=== PATIENT | male | born 1950 | race Caucasian/White ===

== ENCOUNTER → 2018-10-29 | Day surgery (SDC) | payer MEDICARE ==
[2018-10-25 17:10] LABS: BASOPHILS # (AUTO) 0.1 (0.0-0.1); BASOPHILS % 0.7 % (0.0-1.0); EOSINOPHILS # (AUTO) 0.2 (0.0-0.4); EOSINOPHILS % 2.7 % (0.0-6.0); HEMATOCRIT 36.8 % (38.2-49.6); HEMOGLOBIN 12.4 g/dL (14.0-18.0); LYMPHOCYTES # (AUTO) 1.9 (1.0-3.2); MEAN CORPUSCULAR HEMOGLOBIN 29.5 pg (28-32); MEAN CORPUSCULAR HGB CONC 33.7 g/dL (31-35); MEAN CORPUSCULAR VOLUME 87.6 fL (81-99); MONOCYTES # (AUTO) 0.6 (0.2-0.8); MONOCYTES % 9.1 % (4.4-11.3); NEUTROPHILS % 58.9 % (38.7-80.0); PLATELET COUNT 183 x10e3/uL (140-360); RED CELL DISTRIBUTION WIDTH 13.3 % (11.7-14.4)
[~2018-10-29] MED LIST: ASPIR 8181 MG PO; CARVEDILOL3.125 MG PO; DEXTROSE 5% 250ML 250 ML IV ONE; GLIMEPIRIDE2 MG PO; LAMOTRIGINE100 MG PO; METFORMIN HCL1000 MG PO; MIDAZOLAM HCL 2 MG/2 ML VIAL ONE; PIOGLITAZONE HC45 MG PO; PROPOFOL IV EMULSION 10 MG/ML 50 ML VIAL ONE; ROPINIROLE HCL1 MG PO; SIMVASTATIN20 MG PO; SPIRONOLACTONE25 MG PO; STRATTERA100 MG PO; TIZANIDINE HCL4 MG PO; TRAZODONE HCL50 MG PO
--- OUTSIDE RECORDS SUMMARY | 2018-10-29 06:29 | XMS REPORT | Clinical Summary ---
Author Author [facility] Organization [facility] Address Unknown Phone Unavailable Care Team Providers Care Display Artist Name Role Phone PCP Unavailable Allergies No Known Allergies Medications Not on file Active Problems Not on file Encounters Care Team Description Date Type Specialty 06/13/2018 Emergency Emergency Medicine 06/13/2018 Travel after 10/28/2017 Social History Date Tobacco Use Types Packs/Day Years Used Never Assessed Sex Assigned at Date Recorded Not on file Industry Job Start Date Occupation Not on file Not on file Not on file Travel End Travel History Travel Start No recent travel history available. Last Filed Vital Signs Reading Time Taken Comments Vital Sign 125/74 06/13/2018 7:24 PM MASH TUB COOKER OPERATOR Blood Pressure 95 06/13/2018 7:24 PM MASH TUB COOKER OPERATOR Pulse 36.7 C (98 F) 06/13/2018 7:24 PM MASH TUB COOKER OPERATOR Temperature 16 06/13/2018 7:24 PM MASH TUB COOKER OPERATOR Respiratory Rate 100% 06/13/2018 7:24 PM MASH TUB COOKER OPERATOR Oxygen Saturation - - Inhaled Oxygen Concentration - - Weight - - Height - - Body Mass Index Plan of Treatment Health Maintenance Due Date Last Done Comments Colorectal Cancer Scrn 09/25/2001 Annual (FIT/FOBT) Age 50 to 75 IMM Pneumococcal Age 65 09/25/2016 and Up IMM Influenza Seasonal 02/04/2019Feb to July (>/=19 yrs) Results Not on fileafter 10/28/2017 Insurance Type Payer Benefit Subscriber ID Effective Phone Address Plan / Dates Group [facility] SELECTCARE xxxxxxxxx 2018-P [phone] [id number] [place] [address]
--- OUTSIDE RECORDS SUMMARY | 2018-10-29 06:29 | XMS REPORT | Clinical Summary ---
Author Author [facility] Address Unknown Phone Unavailable Care Team Providers Care Population Health Manager Name Role Phone Sofi Wasserman MD PCP Unavailable Allergies No Known Allergies Medications End Date Status Medication Sig Dispensed Refills Start Date Active lamoTRIgine (LaMICtal) Take 100 mg 0 100 MG tablet by mouth 2 (two) times a day. Active traZODone (DESYREL) 150 Take 150 mg 0 MG tablet by mouth 3 (three) times a day. Active pioglitazone (ACTOS) 15 Take 15 mg by 0 MG tablet mouth nightly. Active lisinopril Take 10 mg by 0 (PRINIVIL,ZESTRIL) 10 mg mouth daily. tablet Active atomoxetine (STRATTERA) Take 100 mg 0 40 MG capsule by mouth daily. Active montelukast (SINGULAIR) Take 10 mg by 0 10 mg tablet mouth daily. Active glimepiride (AMARYL) 4 MG Take 4 mg by 0 tablet mouth daily before breakfast. Active tiZANidine (ZANAFLEX) 4 Take 4 mg by 0 MG tablet mouth every 8 (eight) hours as needed for muscle spasms. Active rOPINIRole (REQUIP) 2 MG Take 2 mg by 0 tablet mouth 2 (two) times a day. Active aspirin (ECOTRIN) 81 MG Take 81 mg by 0 enteric coated tablet mouth daily. 06/12/2019 Active spironolactone Take 1 tablet 30 tablet 11 (ALDACTONE) 25 MG tablet (25 mg total) 9 by mouth daily. 06/12/2019 Active carvedilol (COREG) 6.25 Take 1 tablet 60 tablet 11 MG tablet (6.25 mg 9 total) by mouth 2 (two) times a day with meals. 06/12/2019 Active simvastatin (ZOCOR) 20 MG Take 1 tablet 30 tablet 11 tablet (20 mg total) 9 by mouth nightly. 06/12/2018 Discontinued metFORMIN (GLUCOPHAGE) Take 1,000 mg 0 1,000 mg tablet by mouth 2 (two) times a day with meals. Active Problems Problem Noted Date Chest pain, rule out acute myocardial infarction 06/11/2018 Encounters Care Team Description Date Type Specialty Esteban Hall MD Cv left heart cath [64850 (CPT)] 06/12/2018 Surgery Procedural Cardiology Reymundo Chavez MD Berberian, Esteban N., MD Chest pain, rule out acute myocardial infarction (Primary Dx) 06/10/2018 Emergency General Internal Medicine - 06/12/2018 after 10/28/2017 Immunizations Name Dates Previously Given Next Due FLUCELVAX QUAD PF (0.5mL 06/11/2018 syringe) Pneumococcal Conjugate 06/11/2018 13-Valent Social History Date Tobacco Use Types Packs/Day Years Used Former Smoker Smokeless Tobacco: Former User Alcohol Use Drinks/Week oz/Week Comments No Alcohol Habits Answer Date Recorded How often do you have a drink containing alcohol? Never 06/11/2018 How many drinks containing alcohol do you have on Not asked a typical day when you are drinking? How often do you have six or more drinks on one Not asked occasion? Sex Assigned at Date Recorded Not on file Industry Job Start Date Occupation Not on file Not on file Not on file Travel End Travel History Travel Start No recent travel history available. Last Filed Vital Signs Time Taken Vital Sign Reading 06/12/2018 4:28 PM JAVA J2EE SOFTWARE ENGINEER Blood Pressure 133/62 06/12/2018 4:28 PM JAVA J2EE SOFTWARE ENGINEER Pulse 97 06/12/2018 4:28 PM JAVA J2EE SOFTWARE ENGINEER Temperature 36.3 C (97.3 F) 06/12/2018 4:28 PM JAVA J2EE SOFTWARE ENGINEER Respiratory Rate 19 06/12/2018 4:28 PM JAVA J2EE SOFTWARE ENGINEER Oxygen Saturation 95% - Inhaled Oxygen - Concentration 06/10/2018 9:24 PM JAVA J2EE SOFTWARE ENGINEER Weight 95.3 kg (210 lb) 06/10/2018 9:24 PM JAVA J2EE SOFTWARE ENGINEER Height 180.3 cm (5' 11") 06/10/2018 9:24 PM JAVA J2EE SOFTWARE ENGINEER Body Mass Index 29.29 Plan of Treatment Health Maintenance Due Date Last Done Comments COLONOSCOPY SCREENING 09/25/2001 SHINGLES VACCINES (#1) 09/25/2001 INFLUENZA VACCINE 12/05/2018 06/11/2018 65+ PNEUMOCOCCAL VACCINE 06/11/2019 06/11/2018 (2 of 2 - PPSV23) Implants Device Identifier Shelf Expiration Date Model / Serial / Lot Implanted Type Area Manufactur er 05/06/2020 [id number] / / [id number] Device Vasclr Clsr Baln Cath 10ml Cardiovasc N/A: N/A CARDINAL Lkng Syr 6fr 7fr Mynxgrip - [facility] [id number] Implants Implanted: 06/12/2018 (Quantity not on file) Procedures Comments Procedure Name Priority Date/Time Associated Diagnosis POC GLUCOSE Routine 06/12/2018 4:29 PM JAVA J2EE SOFTWARE ENGINEER CV LEFT HEART CATH Routine 06/12/2018 11:34 AM JAVA J2EE SOFTWARE ENGINEER POC GLUCOSE Routine 06/12/2018 6:57 AM JAVA J2EE SOFTWARE ENGINEER POC GLUCOSE Routine 06/11/2018 10:14 PM JAVA J2EE SOFTWARE ENGINEER POC GLUCOSE Routine 06/11/2018 4:41 PM JAVA J2EE SOFTWARE ENGINEER POC GLUCOSE Routine 06/11/2018 11:36 AM JAVA J2EE SOFTWARE ENGINEER ECHOCARDIOGRAM 2D Routine 06/11/2018 COMPLETE W MMODE SPECTRAL 10:30 AM JAVA J2EE SOFTWARE ENGINEER COLOR DOPPLER (33526) LIPID PANEL Routine 06/11/2018 8:38 AM JAVA J2EE SOFTWARE ENGINEER TROPONIN Timed 06/11/2018 8:38 AM JAVA J2EE SOFTWARE ENGINEER POC GLUCOSE Routine 06/11/2018 6:36 AM JAVA J2EE SOFTWARE ENGINEER TROPONIN Timed 06/11/2018 2:54 AM JAVA J2EE SOFTWARE ENGINEER ESTIMATED GFR STAT 06/10/2018 10:40 PM JAVA J2EE SOFTWARE ENGINEER B NATRIURETIC PEPTIDE STAT 06/10/2018 10:40 PM JAVA J2EE SOFTWARE ENGINEER TROPONIN STAT 06/10/2018 10:40 PM JAVA J2EE SOFTWARE ENGINEER COMPREHENSIVE METABOLIC STAT 06/10/2018 PANEL 10:40 PM JAVA J2EE SOFTWARE ENGINEER HC COMPLETE BLD COUNT STAT 06/10/2018 W/AUTO DIFF 10:40 PM JAVA J2EE SOFTWARE ENGINEER XR CHEST 2 VW STAT 06/10/2018 10:29 PM JAVA J2EE SOFTWARE ENGINEER ECG ED PRELIMINARY Routine 06/10/2018 INTERPRETATION 10:02 PM JAVA J2EE SOFTWARE ENGINEER ECG 12-LEAD STAT 06/10/2018 9:50 PM JAVA J2EE SOFTWARE ENGINEER after 10/28/2017 Results * POC glucose (06/12/2018 4:29 PM JAVA J2EE SOFTWARE ENGINEER) Only the most recent of 6 results within the time period is included. [facility] POC glucose 296 (H) 65 - 100 mg/dL [place] Comment: ZAK VALVERDE Meter ID: [id number] [facility] Cook Apprentice Pastry: [facility] Specimen Performing Organization Address City/State/Zipcode Phone Number [facility] [place] DEPARTMENT OF [facility] [place] [address] PATHOLOGY AND GENOMIC MEDICINE [place] ZAK VALVERDE [facility] [address] [place], [place] [id number] [place] [address] * Cv laborer bituminous paving procedure (06/12/2018 11:34 AM JAVA J2EE SOFTWARE ENGINEER) Specimen Narrative Performed At * Echocardiogram complete w contrast and 3D if needed (06/11/2018 10:30 AM JAVA J2EE SOFTWARE ENGINEER) [facility] Velocity Ratio 0.61 m/s [facility] (V1/V2) IVS,d 0.82 cm [facility] EF 24.54 % [facility] Ascending aorta 3.38 cm [facility] LVPWD,d 0.76 cm [facility] AoV Mean PG 9.29 mmHg [facility] AV LVOT peak 4.19 mmHg [facility] gradient MV valve area p 4.46 cm2 [facility] 1/2 method PV Pk Grad 3.53 mmHg [facility] E/A ratio 1.25 [facility] E wave 180.00 msec [facility] decelartion time LVOT Diam,S 2.05 cm [facility] LVOT area 3.30 cm2 [facility] LVOT Vmax 1.17 m/s [facility] LVOT VTI 0.19 m [facility] AoV Peak PG 13.19 mmHg [facility] MV Peak E Shun 0.95 m/s [facility] MV stenosis 49.30 ms [facility] pressure 1/2 time MV Peak A Shun 0.76 m/s [facility] BSA 2.13 m2 [facility] Ao Root 2.87 cm [facility] Diameter AoV Area, Vmax 1.86 cm2 [facility] AoV Area, VTI 1.76 cm2 [facility] AoV Vmax 1.92 m/s [facility] BSA Bliss 2.18 m2 [facility] BSA Haycock 2.18 m2 [facility] IVS/LVPW,2D 1.08 [facility] Left Atrium 3.85 cm [facility] Dimension Anterior LV,d 6.05 cm [facility] LV,s 5.35 cm [facility] PV VMAX 0.94 m/s [facility] RVSP (TR) 50.83 mmHg [facility] TR Vpeak 3.20 mm/s [facility] BMI 28.59 kg/m2 [facility] MV E A ratio 1.20 [facility] TR pk grad 39.56 mmHg [facility] AoV area i VTI 0.82 cm2/m2 [facility] BSA Roland MR peak grad 90.82 mmHg [facility] RVSP 50.83 mmHg [facility] Ao Root 2.87 cm [facility] Diameter AR Press Half 315.83 ms [facility] Time LV SYS VOL 138.52 ml [facility] LV GALVAN VOL 183.56 ml [facility] LA Vol MOD A4C 138.60 ml [facility] LV SI Teich 2D 21.13 ml/m2 [facility] LV SV Teich 2D 45.04 ml [facility] LV Vol s Teich 138.52 ml [facility] PSAX LVOT CI 6.73 l/min/m2 [facility] LVOT CO 14.33 l/min [facility] LVOT HR for 208.12 bpm [facility] LVOT CO LVOT SI 32.32 ml/m2 [facility] AoV Vmn 1.46 [facility] AR slope 5.14 [facility] Ar Vmax 4.78 [facility] IVS s 2D 0.65 [facility] LV FS Cube 2D 11.54 [facility] LV FS Teich 2D 11.54 [facility] AoV VTI 0.43 m [facility] LV EF,2D 30.77 % [facility] MR Vmax 4.98 m/s [facility] MV AE ratio 0.84 [facility] LVOT Vmn 0.67 [facility] Pt Size 180.34 [facility] Pt Wt 92.99 [facility] Aov area Vmn 1.78 cm2 [facility] LVOT mean grad 1.92 mmHg [facility] MAX Pred HR 153.29 [facility] 85 of MPHR 130.30 [facility] AoV area I VMN 0.83 cm2/m2 [facility] bsa AR DT 928.82 msec [facility] AR pk grad 89.59 mmHg [facility] Calc MPHR 153.29 bpm [facility] IVS pct thck -20.84 % [facility] PLAX LV SI Cube 2D 32.00 ml/m2 [facility] LV SV Cube 2D 68.19 ml [facility] LV vol d cube 221.62 ml [facility] 2D LV vol s cube 153.43 ml [facility] 2D LVPW pct thck 45.75 % [facility] PLAX LVPW s PLAX 1.10 cm [facility] MV Decel slope 5.29 m/s2 [facility] Pred Exer Dur 7.68 [facility] R1 Pred METS R1 7.99 [facility] Specimen Narrative Performed At [facility] The left ventricle chamber size is moderately enlarged. Left ventricular systolic function is moderately impaired. Left Ventricular ejection fraction is 35 - 40%. [id number]-[id number] aortic regurgitation. Mild mitral valve regurgitation Moderately elevated pulmonary artery systolic pressure. RSVP 51 Mm/hg. Performing Organization Address City/State/Zipcode Phone Number [employer] [address] [place] [address] * Troponin (06/11/2018 8:38 AM JAVA J2EE SOFTWARE ENGINEER) Only the most recent of 3 results within the time period is included. Pathologist [facility] Troponin <0.30 0.00 - 0.30 ng/mL [place] Comment: ZAK VALVERDE 0.11 - 1.49 [facility] indicate increased risk of acute coronary syndrome. >=1.5 ng/ml Consistent with acute myocardial infarction. The diagnostic value of a single normal or non-diagnostic result is questionable.Serial samples at 2-6 hour intervals are required to rule out acute myocardial injury. Specimen Plasma specimen Performing Organization Address City/State/Zipcode Phone Number [facility] [place] DEPARTMENT OF [address] [facility] [place] [address] PATHOLOGY AND GENOMIC MEDICINE [place] ZAK VALVERDE [address] [place], [place] [id number] [place] [address] * Lipid panel (06/11/2018 8:38 AM JAVA J2EE SOFTWARE ENGINEER) Cholesterol 136 0 - 199 mg/dL [facility] Triglycerides 41 0 - 149 mg/dL [facility] HDL cholesterol 47 40 - 9,999 mg/dL [facility] LDL cholesterol 96Comment: Result obtained by 0 - 99 mg/dL [place] direct LDL measurement [facility] Lipid panel See below [place] interpretation Comment: [facility] Total Cholesterol [facility] (mg/dL) [facility] LDL Cholesterol (mg/dL) <200 Desirable <100 Optimal 200-239Borderline -[id number] 29Near or above optimal >=240High 130-159Borderline- high 160-189High >=190Very high HDL Cholesterol (mg/dL) Triglycerides (mg/dL) <40Low <150 Normal >=60 High 150-199Borderline- high 200-499High >=500Very high Risk Catergories that modify LDL goals. Risk Catergories LDL goal (mg/dL) CHD and CHD risk equivalent <100 (10-year risk >20%) Multiple (2+) risk factors <130 (10-year risk=<20%) 0-1 risk factors <160 (<10-year risk) Defining levels of lipids in metabolic syndrome Triglycerides >=150 mg/dL HDL Cholesterol Men <40 mg/dL Women <50 mg/dL Non-HDL cholesterol is a second target for therapy in persons with high triglycerides (>=200 mg/dL) Specimen Plasma specimen Performing Organization Address City/State/Zipcode Phone Number [facility] DE[facility]MENT OF [address] [place] [address] PATHOLOGY AND GENOMIC MEDICINE [place] [id number] [address] * Estimated GFR (06/10/2018 10:40 PM JAVA J2EE SOFTWARE ENGINEER) [facility] Estimated GFR 88 mL/min/1.73 m2 [place] Comment: [facility] G1 >=90 Normal or high G2 60-89Mildly decreased [id number] Mildly to moderately decreased P1a28-51 Moderately to severely decreased G4 15-29Severely decreased G5 <15Kidney failure The eGFR was calculated using the Chronic Kidney Disease Epidemiology Collaboration (CKD-EPI) equation. Interpretation is based on recommendations of the National Kidney Foundation-Kidney Disease Outcomes Quality Initiative (NKF-KDOQI) published in 2014. Specimen Plasma specimen Performing Organization Address City/State/Zipcode Phone Number [facility] [address] [place] [address] PATHOLOGY AND GENOMIC MEDICINE [facility] Angela [address] [place], [place] [id number] [place] [address] * CBC with platelet and differential (06/10/2018 10:40 PM JAVA J2EE SOFTWARE ENGINEER) WBC 7.6 4.2 - 11.0 k/uL [facility] RBC 4.03 (L) 4.04 - 5.86 m/uL [facility] HGB 11.4 (L) 13.0 - 17.3 g/dL [facility] HCT 37.2 34.0 - 45.0 % [facility] MCV 92.3 80.0 - 98.[address] [facility] MCH 28.3 27.0 - 34.[address] [facility] MCHC 30.6 (L) 31.5 - 36.5 g/dL [facility] RDW - SD 45.5 37.0 - 51.[address] [facility] MPV 9.8 7.4 - 10.[address] [facility] Platelet count 177 150 - 400 k/uL [facility] Nucleated RBC 0.00 /[address] [facility] Neutrophils 72.1 (H) 36.0 - 66.0 % [facility] Lymphocytes 20.7 (L) 24.0 - 44.0 % [facility] Monocytes 5.3 0.0 - 6.0 % [facility] Eosinophils 1.1 0.0 - 6.0 % [facility] Basophils 0.5 0.0 - 1.2 % [facility] Immature 0.3 0.0 - 1.0 % [place] granulocytes [facility] Specimen Blood Performing Organization Address City/[facility]/Zipcode Phone Number [facility] [address] [place] [address] PATHOLOGY AND GENOMIC MEDICINE [place] [id number] [address] * B natriuretic peptide (06/10/2018 10:40 PM JAVA J2EE SOFTWARE ENGINEER) [facility] BNP 199 (H) 0 - 100 pg/mL [facility] Specimen Blood Performing Organization Address [facility] Phone Number [facility] [place] DEPARTMENT [address] [place] [address] PATHOLOGY AND [facility] MEDICINE [place] [address] [address] * Comprehensive metabolic panel (06/10/2018 10:40 PM JAVA J2EE SOFTWARE ENGINEER) [facility] Sodium 140 135 - 150 mEq/L [facility] Potassium 4.2 3.5 - 5.0 mEq/L [facility] Chloride 102 98 - 112 mEq/L [facility] CO2 29 24 - 31 mmol/L [facility] Anion gap 9@ANIO 7 - 15 mEq/L [facility] BUN 11 7 - 18 mg/dL [facility] Creatinine 0.90 0.70 - 1.20 mg/dL [facility] Glucose 158 (H) 65 - 100 mg/dL [facility] Calcium 9.5 8.8 - 10.2 mg/dL [facility] Protein 6.5 6.3 - 8.3 g/dL [facility] Albumin 3.0 (L) 3.5 - 5.0 g/dL [facility] A/G ratio 0.9 0.7 - 3.8 [facility] Alkaline 114 0 - 129 U/L [place] phosphatase [facility] AST 13 10 - 50 U/L [facility] ALT 14 5 - 50 U/L [facility] Total bilirubin <0.3 0.2 - 1.2 mg/dL [facility] Specimen Plasma specimen Performing Organization Address [facility] Phone Number [facility] [address] [place] [id number] PATHOLOGY AND GENOMIC MEDICINE [place] [phone] [place] [address] [facility] * XR Chest 2 Vw (06/10/2018 10:29 PM JAVA J2EE SOFTWARE ENGINEER) Specimen Narrative Performed At EXAMINATION: XR CHEST 2 VW RADILASHONDA CLINICAL HISTORY: Shortness of breath COMPARISON:None. IMPRESSION: Low lung volumes with bibasilar atelectasis, new from the prior study. Small pleural effusions bilaterally, The cardiomediastinal silhouette is normal. No acute osseous abnormalities. [facility]-[id number] Procedure Note Hm Interface, Radiology Results Incoming - 06/10/2018 10:34 PM JAVA J2EE SOFTWARE ENGINEER EXAMINATION: XR CHEST 2 VW CLINICAL HISTORY: Shortness of breath COMPARISON: None. IMPRESSION: Low lung volumes with bibasilar atelectasis, new from the prior study. Small pleural effusions bilaterally, The cardiomediastinal silhouette is normal. No acute osseous abnormalities. [facility]-[id number] Performing Organization Address City/State/Zipcode Phone Number [facility] [address] [place] [address] * ECG ED Preliminary Interpretation - Not an Order (06/10/2018 10:02 PM JAVA J2EE SOFTWARE ENGINEER) Narrative Performed At Reymundo Chavez MD 06/14/2018 11:14 AM ECG ED Preliminary Interpretation - Not an Order Performed by: Reymundo Chavez MD Authorized by: Reymundo Chavez MD ECG reviewed by ED Physician in the absence of a shipping receiving clerk: yes Interpretation: Interpretation: normal Rate: ECG rate:79 bpm ECG rate assessment: normal Rhythm: Rhythm: sinus rhythm Ectopy: Ectopy: none QRS: QRS axis:Normal QRS intervals:Normal Conduction: Conduction: normal ST segments: ST segments:Normal T waves: T waves: normal * ECG 12 lead (06/10/2018 9:50 PM JAVA J2EE SOFTWARE ENGINEER) Ventricular 79 [facility] rate Atrial rate 79 [facility] CA interval 154 [facility] QRSD interval 88 [facility] QT interval 376 [facility] QTC interval 431 [facility] P axis 1 48 [facility] QRS axis 1 -27 [facility] T wave axis 23 [facility] EKG impression Normal sinus rhythm with sinus [facility] MUSE arrhythmia-Anteroseptal infarct , age undetermined-Abnormal ECG-No previous ECGs available- Specimen Narrative Performed At Performing Organization Address City/State/Zipcode Phone Number [facility] YANELI [address] [place] [address] after 10/28/2017 Insurance Type Payer Benefit Subscriber ID Effective Phone Address Plan / Dates Group HMO [employer] xxxxxxxxx 2018-P JENI hardy Advance Directives Patient has advance care planning documents on file. For more information, mansi ayon contact: Mg Tanner [address] [place] [address]
--- OUTSIDE RECORDS SUMMARY | 2018-10-29 06:29 | XMS REPORT ---
Author Author [facility] Address Unknown Phone Unavailable Care Team Providers Care Bridges And Buildings Supervisor Name Role Phone Unavailable Unavailable Problems This patient has no known problems. Allergies, Adverse Reactions, Alerts This patient has no known allergies or adverse reactions. Medications This patient has no known medications. Encounters Start Date/Time End Date/Time Encounter Type Admission Type Attending Clinicians Care Facility Care Department Encounter ID 2018-06-13 11:22:00 2018-06-13 11:22:00 Emergency [facility] [id number]
[2018-10-29 09:40] VITALS: BP 113/70
== END | disposition home or self-care (01) ==
LOC: OR 06:27
PROVIDERS: ATTEND Internal Medicine Gastroenterology
DX: Z12.11 Encounter for screening for malignant neoplasm of colon (principal); R19.5 Other fecal abnormalities; K29.50 Unspecified chronic gastritis without bleeding; K25.9 Gastric ulcer, unspecified as acute or chronic, without hemorrhage or perforation; K44.9 Diaphragmatic hernia without obstruction or gangrene; Z79.82 Long term (current) use of aspirin; I11.0 Hypertensive heart disease with heart failure; I50.9 Heart failure, unspecified; I69.311 Memory deficit following cerebral infarction; K64.9 Unspecified hemorrhoids; R63.4 Abnormal weight loss; K59.00 Constipation, unspecified; R07.9 Chest pain, unspecified; Z01.810 Encounter for preprocedural cardiovascular examination; Z01.812 Encounter for preprocedural laboratory examination; G47.33 Obstructive sleep apnea (adult) (pediatric); I25.10 Atherosclerotic heart disease of native coronary artery without angina pectoris; K58.9 Irritable bowel syndrome, unspecified; E11.9 Type 2 diabetes mellitus without complications; Z79.84 Long term (current) use of oral hypoglycemic drugs
CPT/HCPCS: 36415 ×2; 43239; 82948; 85025; 93005; J2250; J2704; J7070

== ENCOUNTER → 2018-12-03 | Day surgery (SDC) | payer MEDICARE ==
[~2018-12-03] MED LIST changes: -DEXTROSE 5% 250ML 250 ML IV ONE; +FENTANYL CITRATE/PF 100MCG/2 ML INJ ONE
--- OUTSIDE RECORDS SUMMARY | 2018-12-03 05:20 | XMS REPORT | Clinical Summary ---
Author Author [facility] Organization [facility] Address Unknown Phone Unavailable Care Team Providers Care Exhibitions And Collections Manager Name Role Phone PCP Unavailable Allergies No Known Allergies Medications Not on file Active Problems Not on file Encounters Care Team Description Date Type Specialty 06/13/2018 Emergency Emergency Medicine 06/13/2018 Travel after 12/02/2017 Social History Date Tobacco Use Types Packs/Day Years Used Never Assessed Sex Assigned at Date Recorded Not on file Industry Job Start Date Occupation Not on file Not on file Not on file Travel End Travel History Travel Start No recent travel history available. Last Filed Vital Signs Reading Time Taken Comments Vital Sign 125/74 06/13/2018 7:24 PM INTERNET MARKETING STRATEGIST Blood Pressure 95 06/13/2018 7:24 PM INTERNET MARKETING STRATEGIST Pulse 36.7 C (98 F) 06/13/2018 7:24 PM INTERNET MARKETING STRATEGIST Temperature 16 06/13/2018 7:24 PM INTERNET MARKETING STRATEGIST Respiratory Rate 100% 06/13/2018 7:24 PM INTERNET MARKETING STRATEGIST Oxygen Saturation - - Inhaled Oxygen Concentration - - Weight - - Height - - Body Mass Index Plan of Treatment Health Maintenance Due Date Last Done Comments Colorectal Cancer Scrn 09/25/2001 Annual (FIT/FOBT) Age 50 to 75 IMM Pneumococcal Age 65 09/25/2016 and Up IMM Influenza Seasonal 02/04/2019Feb to July (>/=19 yrs) Results Not on fileafter 12/02/2017 Insurance Type Payer Benefit Subscriber ID Effective Phone Address Plan / Dates Group [facility] SELECTCARE xxxxxxxxx 2018-P [phone] [id number] [place] [address]
--- OUTSIDE RECORDS SUMMARY | 2018-12-03 05:20 | XMS REPORT | Clinical Summary ---
Author Author [employer] [employer] Address Unknown Phone Unavailable Care Team Providers Care Store Operations Specialist Name Role Phone Sofi Wasserman MD PCP [...] Esteban Hall MD Cv left heart cath [[id number] (CPT)] 06/12/2018 Surgery Procedural Cardiology Reymundo Chavez MD Berberian, Esteban N., MD Chest pain, rule out acute myocardial infarction (Primary Dx) 06/10/2018 Emergency General Internal Medicine - 06/12/2018 after 12/02/2017 Immunizations Name Dates Previously Given Next Due [...] Taken Vital Sign Reading 06/12/2018 4:28 PM MANAGER EXCHANGE Blood Pressure 133/62 06/12/2018 4:28 PM MANAGER EXCHANGE Pulse 97 06/12/2018 4:28 PM MANAGER EXCHANGE Temperature 36.3 C (97.3 F) 06/12/2018 4:28 PM MANAGER EXCHANGE Respiratory Rate 19 06/12/2018 4:28 PM MANAGER EXCHANGE Oxygen Saturation 95% - Inhaled Oxygen - Concentration 06/10/2018 9:24 PM MANAGER EXCHANGE Weight 95.3 kg (210 lb) 06/10/2018 9:24 PM MANAGER EXCHANGE Height 180.3 cm (5' 11") 06/10/2018 9:24 PM MANAGER EXCHANGE Body Mass Index 29.29 Plan of Treatment Health Maintenance Due Date Last Done Comments COLONOSCOPY SCREENING 09/25/2001 SHINGLES VACCINES (#1) 09/25/2001 INFLUENZA VACCINE 12/05/2018 06/11/2018 65+ PNEUMOCOCCAL VACCINE 06/11/2019 06/11/2018 (2 of 2 - PPSV23) Implants Device Identifier Shelf Expiration Date Model / Serial / Lot Implanted Type Area Manufactur er 05/06/2020 [id number] / / [id number] Device Vasclr Clsr Baln Cath 10ml Cardiovasc N/A: N/A CARDINAL Lkng Syr 6fr 7fr Mynxgrip - [facility] [id number] Implants Implanted: 06/12/2018 (Quantity not on file) Procedures Comments Procedure Name Priority Date/Time Associated Diagnosis POC GLUCOSE Routine 06/12/2018 4:29 PM MANAGER EXCHANGE CV LEFT HEART CATH Routine 06/12/2018 11:34 AM MANAGER EXCHANGE POC GLUCOSE Routine 06/12/2018 6:57 AM MANAGER EXCHANGE POC GLUCOSE Routine 06/11/2018 10:14 PM MANAGER EXCHANGE POC GLUCOSE Routine 06/11/2018 4:41 PM MANAGER EXCHANGE POC GLUCOSE Routine 06/11/2018 11:36 AM MANAGER EXCHANGE ECHOCARDIOGRAM 2D Routine 06/11/2018 COMPLETE W MMODE SPECTRAL 10:30 AM MANAGER EXCHANGE COLOR DOPPLER ([id number]) LIPID PANEL Routine 06/11/2018 8:38 AM MANAGER EXCHANGE TROPONIN Timed 06/11/2018 8:38 AM MANAGER EXCHANGE POC GLUCOSE Routine 06/11/2018 6:36 AM MANAGER EXCHANGE TROPONIN Timed 06/11/2018 2:54 AM MANAGER EXCHANGE ESTIMATED GFR STAT 06/10/2018 10:40 PM MANAGER EXCHANGE B NATRIURETIC PEPTIDE STAT 06/10/2018 10:40 PM MANAGER EXCHANGE TROPONIN STAT 06/10/2018 10:40 PM MANAGER EXCHANGE COMPREHENSIVE METABOLIC STAT 06/10/2018 PANEL 10:40 PM MANAGER EXCHANGE HC COMPLETE BLD COUNT STAT 06/10/2018 W/AUTO DIFF 10:40 PM MANAGER EXCHANGE XR CHEST 2 VW STAT 06/10/2018 10:29 PM MANAGER EXCHANGE ECG ED PRELIMINARY Routine 06/10/2018 INTERPRETATION 10:02 PM MANAGER EXCHANGE ECG 12-LEAD STAT 06/10/2018 9:50 PM MANAGER EXCHANGE after 12/02/2017 Results * POC glucose (06/12/2018 4:29 PM MANAGER EXCHANGE) Only the most recent of 6 results within the time period is included. [facility] POC glucose 296 (H) 65 - 100 mg/dL [place] Comment: ZAK VALVERDE Meter ID: [id number] [facility] Gang Supervisor: [facility] Specimen Performing Organization Address City/State/Zipcode Phone Number [facility] DEPARTMENT OF [facility] [place] [address] PATHOLOGY AND GENOMIC MEDICINE [place] ZAK VALVERDE [facility] [address] [place], [place] [id number] [place] [address] * Cv slabber procedure (06/12/2018 11:34 AM MANAGER EXCHANGE) Specimen Narrative Performed At * Echocardiogram complete w contrast and 3D if needed (06/11/2018 10:30 AM MANAGER EXCHANGE) [facility] Velocity Ratio 0.61 m/s HM SYNGO (V1/V2) [...] i VTI 0.82 cm2/m2 HM SYNGO BSA [place] MR peak grad 90.82 mmHg HM SYNGO [...] Ventricular ejection fraction is 35 - 40%. Vmzk-[id number]-kesaylis aortic regurgitation. Mild mitral valve regurgitation Moderately elevated pulmonary artery systolic pressure. RSVP 51 Mm/hg. Performing Organization Address City/State/Zipcode Phone Number [employer] [address] [place] [address] * Troponin (06/11/2018 8:38 AM MANAGER EXCHANGE) Only the most recent of 3 results within the time period is included. Pathologist [facility] Troponin <0.30 0.00 - 0.30 ng/mL [place] Comment: ZAK VALVERDE 0.11 - 1.49 [facility] indicate increased risk of acute coronary syndrome. >=1.5 ng/ml Consistent with acute myocardial infarction. The diagnostic value of a single normal or non-diagnostic result is questionable.Serial samples at 2-6 hour intervals are required to rule out acute myocardial injury. Specimen Plasma specimen Performing Organization Address City/State/Zipcode Phone Number [facility] DEPARTMENT OF [address] [facility] [place] [address] PATHOLOGY AND GENOMIC MEDICINE [place] ZAK VALVERDE [address] [place], [place] [phone] [place] [address] * Lipid panel (06/11/2018 8:38 AM MANAGER EXCHANGE) Cholesterol 136 0 - 199 mg/dL [facility] Triglycerides 41 0 - 149 mg/dL [facility] HDL cholesterol 47 40 - 9,999 mg/dL [facility] LDL cholesterol 96Comment: Result obtained by 0 - 99 mg/dL [place] direct LDL measurement [facility] Lipid panel See below [place] interpretation Comment: [facility] Total Cholesterol [facility] (mg/dL) [facility] LDL Cholesterol (mg/dL) <200 Desirable <100 Optimal 200-239Borderline -[id number] or above optimal >=240High 130-159Borderline- high [...] specimen Performing Organization Address City/State/Zipcode Phone Number [facility] DE[facility]MENT OF [address] [place] [address] PATHOLOGY AND GENOMIC MEDICINE [place] [id number] [address] * Estimated GFR (06/10/2018 10:40 PM MANAGER EXCHANGE) [facility] Estimated GFR 88 mL/min/1.73 m2 [place] Comment: [facility] G1 >=90 Normal or high G2 60-89Mildly decreased [id number] Mildly to moderately decreased [id number] Moderately to severely decreased G4 15-29Severely decreased G5 <15Kidney failure The eGFR was calculated using the Chronic Kidney Disease Epidemiology Collaboration (CKD-EPI) equation. Interpretation is based on recommendations of the National Kidney Foundation-Kidney Disease Outcomes Quality Initiative (NKF-KDOQI) published in 2014. Specimen Plasma specimen Performing Organization Address City/State/Zipcode Phone Number [facility] [address] [place] [address] PATHOLOGY AND GENOMIC MEDICINE [facility] Angela [address] [place], [place] [phone] [place] [address] * CBC with platelet and differential (06/10/2018 10:40 PM MANAGER EXCHANGE) WBC 7.6 4.2 - 11.0 k/uL [facility] RBC 4.03 (L) 4.04 - 5.86 m/uL [facility] HGB 11.4 (L) 13.0 - 17.3 g/dL [facility] HCT 37.2 34.0 - 45.0 % [facility] MCV 92.3 80.0 - 98.0 fL [facility] MCH 28.3 27.0 - 34.0 pg [facility] MCHC 30.6 (L) 31.5 - 36.5 g/dL [facility] RDW - SD 45.5 37.0 - 51.0 fL [facility] MPV 9.8 7.4 - 10.4 fL [facility] Platelet count 177 150 - 400 k/uL [facility] Nucleated RBC 0.00 /100 WBC [facility] Neutrophils 72.1 (H) 36.0 - 66.0 % [facility] Lymphocytes 20.7 (L) 24.0 - 44.0 % [facility] Monocytes 5.3 0.0 - 6.0 % [facility] Eosinophils 1.1 0.0 - 6.0 % [facility] Basophils 0.5 0.0 - 1.2 % [facility] Immature 0.3 0.0 - 1.0 % [place] granulocytes [facility] Specimen Blood Performing Organization Address City/[facility]/Zipcode Phone Number [facility] [address] [place] [address] PATHOLOGY AND GENOMIC MEDICINE [place] [phone] [address] Al[address] * B natriuretic peptide (06/10/2018 10:40 PM MANAGER EXCHANGE) [facility] BNP 199 (H) 0 - 100 pg/mL [facility] Specimen Blood Performing Organization Address [facility] Services[facility] Phone Number [facility] DEPARTMENT [address] [place] [address] PATHOLOGY AND [facility] MEDICINE [place] [address] [address] * Comprehensive metabolic panel (06/10/2018 10:40 PM MANAGER EXCHANGE) [facility] Sodium 140 135 - 150 mEq/L [facility] Potassium 4.2 3.5 - 5.0 mEq/L [facility] Chloride 102 98 - 112 mEq/L [facility] CO2 29 24 - 31 mmol/L [facility] Anion gap 9@ANIO 7 - 15 mEq/L [facility] BUN 11 7 - 18 mg/dL [facility] Creatinine 0.90 0.70 - 1.20 mg/dL [facility] Glucose 158 (H) 65 - 100 mg/dL [facility] Calcium 9.5 8.8 - 10.2 mg/dL [facility] Protein 6.5 6.3 - 8.3 g/dL [facility] Albumin 3.0 (L) 3.5 - 5.0 g/dL [facility] A/G ratio 0.9 0.7 - 3.8 [facility] Alkaline 114 0 - 129 U/L [place] phosphatase [facility] AST 13 10 - 50 U/L [facility] ALT 14 5 - 50 U/L [facility] Total bilirubin <0.3 0.2 - 1.2 mg/dL [facility] Specimen Plasma specimen Performing Organization Address [facility] Services[facility] Phone Number [facility] [address] [place] [phone] PATHOLOGY AND GENOMIC MEDICINE [place] [phone] [place] [address] [facility] * XR Chest 2 Vw (06/10/2018 10:29 PM MANAGER EXCHANGE) Specimen Narrative Performed At EXAMINATION: XR CHEST 2 VW RADILASHONDA CLINICAL HISTORY: Shortness of breath COMPARISON:None. IMPRESSION: Low lung volumes with bibasilar atelectasis, new from the prior study. Small pleural effusions bilaterally, The cardiomediastinal silhouette is normal. No acute osseous abnormalities. [facility]-[id number] Procedure Note Hm Interface, Radiology Results Incoming - 06/10/2018 10:34 PM MANAGER EXCHANGE EXAMINATION: XR CHEST 2 VW CLINICAL HISTORY: Shortness of breath COMPARISON: None. IMPRESSION: Low lung volumes with bibasilar atelectasis, new from the prior study. Small pleural effusions bilaterally, The cardiomediastinal silhouette is normal. No acute osseous abnormalities. [facility]-[id number] Performing Organization Address City/State/Zipcode Phone Number [facility] [address] [place] [address] * ECG ED Preliminary Interpretation - Not an Order (06/10/2018 10:02 PM MANAGER EXCHANGE) Narrative Performed At Reymundo Chavez MD 06/14/2018 11:14 AM ECG ED Preliminary Interpretation - Not an Order Performed by: Reymundo Chavez MD Authorized by: Reymundo Chavez MD ECG reviewed by ED Physician in the absence of a junior architect: yes Interpretation: Interpretation: normal Rate: ECG rate:79 bpm ECG rate assessment: normal Rhythm: Rhythm: sinus rhythm Ectopy: Ectopy: none QRS: QRS axis:Normal QRS intervals:Normal Conduction: Conduction: normal ST segments: ST segments:Normal T waves: T waves: normal * ECG 12 lead (06/10/2018 9:50 PM MANAGER EXCHANGE) Ventricular 79 [facility] rate Atrial rate 79 [facility] AR interval 154 [facility] QRSD interval 88 [facility] QT interval 376 [facility] QTC interval 431 [facility] P axis 1 48 [facility] QRS axis 1 -27 [facility] T wave axis 23 [facility] EKG impression Normal sinus rhythm with sinus [facility] MUSE arrhythmia-Anteroseptal infarct , age undetermined-Abnormal ECG-No previous ECGs available- Specimen Narrative Performed At Performing Organization Address City/State/Zipcode Phone Number [facility] YANELI [address] [place] [address] after 12/02/2017 Insurance Type Payer Benefit Subscriber ID Effective Phone Address Plan / Dates Group HMO [employer] TEX[employer]US xxxxxxxxx 2018-P JENI hardy Advance Directives Patient has advance care planning documents on file. For more information, mansi ayon contact: Mg Tanner [address] [place] [address]
[2018-12-03 10:00] VITALS: BP 137/72
== END | disposition home or self-care (01) ==
LOC: OR 05:17
PROVIDERS: ATTEND Internal Medicine Gastroenterology
DX: Z12.11 Encounter for screening for malignant neoplasm of colon (principal); D12.0 Benign neoplasm of cecum; D12.3 Benign neoplasm of transverse colon; D12.5 Benign neoplasm of sigmoid colon; K57.30 Diverticulosis of large intestine without perforation or abscess without bleeding; K63.89 Other specified diseases of intestine; K59.00 Constipation, unspecified; R19.5 Other fecal abnormalities; K64.8 Other hemorrhoids; R63.4 Abnormal weight loss; E11.9 Type 2 diabetes mellitus without complications; R56.9 Unspecified convulsions; I11.0 Hypertensive heart disease with heart failure; I50.9 Heart failure, unspecified; R07.9 Chest pain, unspecified; Z79.82 Long term (current) use of aspirin; Z79.84 Long term (current) use of oral hypoglycemic drugs; Z86.73 Personal history of transient ischemic attack (TIA), and cerebral infarction without residual deficits; Z87.891 Personal history of nicotine dependence
CPT/HCPCS: 36415; 45384; 45385; 82948; J2250; J2704; J3010; 45378; 45380